=== PATIENT | male | born 1970 | race Caucasian/White ===

== ENCOUNTER 2018-07-03 05:21 | Day surgery (SDC) | payer BC ==
[~2018-07-03] VITALS: Ht 172.7 cm; Wt 64.4 kg
[2018-07-03] MEDS ORDERED: SODIUM CHLORIDE 0.9% 1,000 ML IV SCH (06:07)
[2018-07-03 06:40] VITALS: BP 159/96
[2018-07-03] MEDS ORDERED: OMEG1CAP23 PO (06:50)
[2018-07-03] MEDS ORDERED: AURYXIA PO (06:50)
[2018-07-03] MEDS ORDERED: CALC0.5C9 PO (06:50)
[2018-07-03] MEDS ORDERED: CHOL5000 PO (06:50)
[2018-07-03] MEDS ORDERED: LISI-170 PO (06:50)
[2018-07-03] MEDS ORDERED: FENTANYL PF 250 MCG/5ML ONE (07:06)
[2018-07-03] MEDS ORDERED: MIDAZOLAM 1 MG/ML, 2ML ONE ×2 (07:06→08:54)
[2018-07-03] MEDS ORDERED: PROPOFOL 50 ML ONE (07:07)
[2018-07-03] MEDS ORDERED: BUPIVACAINE/PF 0.5% ONE (07:08)
[2018-07-03] MEDS ORDERED: BUPIVACAINE/PF-EPI 0.5% 1:200K ONE (07:08)
[2018-07-03] MEDS ORDERED: PROTAMINE SULFATE 10 MG/ML, 5ML ONE (07:08)
[2018-07-03] MEDS ORDERED: HEPARIN 1,000 UNITS/ML, 10ML ONE (07:09)
[2018-07-03] MEDS ORDERED: THROMBIN 5,000 UNIT VIAL TP ONE (07:10)
[2018-07-03] MEDS ORDERED: ONDANSETRON 2MG/ML, 2ML ONE (07:33)
[2018-07-03] MEDS ORDERED: SUCCINYLCHOLINE 20 MG/ML, 10ML ONE (07:33)
[2018-07-03] MEDS ORDERED: CEFAZOLIN 1,000 MG ONE (07:33)
[2018-07-03] MEDS ORDERED: MIDAZOLAM 1 MG/ML, 2ML IV PRN (08:00)
[2018-07-03] MEDS ORDERED: PROMETHAZINE 25 MG/ML, 1ML IV PRN (08:00)
[2018-07-03] MEDS ORDERED: ONDANSETRON 2MG/ML, 2ML IV PRN (08:00)
[2018-07-03] MEDS ORDERED: ACETAMINOPHEN 325 MG TABLET PO PRN (08:00)
[2018-07-03] MEDS ORDERED: MORPHINE SULFATE 4 MG/ML, 1ML IVPush PRN (08:00)
[2018-07-03] MEDS ORDERED: ONDANSETRON ODT 8 MG PO PRN (08:00)
[2018-07-03] MEDS ORDERED: EPHEDRINE 50 MG/ML, 1ML IVPush PRN (08:00)
[2018-07-03] MEDS ORDERED: PROMETHAZINE 25 MG SUPP PR PRN (08:00)
[2018-07-03] MEDS ORDERED: PROMETHAZINE 12.5 MG SUPP PR PRN (08:00)
[2018-07-03] MEDS ORDERED: METOPROLOL 1 MG/ML, 5ML IV PRN (08:00)
[2018-07-03] MEDS ORDERED: OXYcodone 5 MG/5 ML ORAL.SOL UDC PO PRN (08:00)
[2018-07-03] MEDS ORDERED: EPHEDRINE 50 MG/ML, 1ML IM PRN (08:00)
[2018-07-03] MEDS ORDERED: DIPHENHYDRAMINE 50 MG/ML, 1ML IVPush PRN (08:00)
[2018-07-03] MEDS ORDERED: BUPIVACAINE/PF-EPI 0.5% 1:200K INFIL ONE (08:06)
[2018-07-03] MEDS ORDERED: HEPARIN 1,000 UNITS/ML, 10ML IV ONE (08:07)
[2018-07-03] MEDS ORDERED: FENTANYL PF 100 MCG/2ML ONE (08:50)
[2018-07-03] MEDS: FENTANYL PF 100 MCG/2ML IV PRN ×3 (08:52→09:23)
[2018-07-03] MEDS ORDERED: ACETAMINOPHEN 650 MG/20.3 ML UDC ONE (09:10)
[2018-07-03] MEDS ORDERED: OXYcodone 5 MG/5 ML ORAL.SOL UDC ONE (09:11)
== END 2018-07-03 11:13 | disposition home or self-care (01) ==
LOC: OUT 05:21
PROVIDERS: ATTEND Surgery
DX: N18.6 End stage renal disease (principal); Z99.2 Dependence on renal dialysis
CPT/HCPCS: 36415; 36821; 49324; 80047; C1750; J0330; J0690; J1644; J2250; J2405; J2704; J2720; J3010; J7030; J3490